=== PATIENT | male | born 1960 | race Caucasian/White ===

== ENCOUNTER 2017-07-04 11:24 | Day surgery (SDC) | payer BC ==
--- NOTE | 2017-07-03 10:48 | Pre-Procedure Note/Attestation ---
Pre-Procedure Note/Attestation Complete Prior to Procedure Planned Procedure: right Procedure Narrative: Rt knee arthroscopy, lateral meniscectomy Indications for Procedure Pre-Operative Diagnosis: Rt knee lateral meniscus tear Attestation I attest that I discussed the nature of the procedure; its benefits; risks and complications; and alternatives (and the risks and benefits of such alternatives ), prior to the procedure, with the patient (or the patient's legal outreach representative). I attest that, if there was a reasonable possibility of needing a blood transfusion, the patient (or the patient's legal outreach representative) was given the [facility] standardized written summary, pursuant to the Wilfred Marcin Blood Safety Act ([place] Health and Safety Code # 1645, as amended). I attest that I re-evaluated the patient just prior to the surgery and that there has been no change in the patient's H&P, except as documented below: NONE KINDRA GRACIA Jul 03, 2017 10:48
[~2017-07-04] VITALS: Ht 182.9 cm; Wt 111.1 kg
[2017-07-04] VITALS (8 sets, daily range): BP systolic 86–136; BP diastolic 48–89
[~2017-07-04 11:24] MED LIST: TESTOSTERONE INJ; VITAMIN B12 INJ; ceFAZolin 1 GM premix IV ONE; celeBREX 200mg Cap **SURGERY PATIENTS ONLY ORAL ONE; oxyCONTIN 20mg tab ORAL ONE
[2017-07-04] MEDS ORDERED: Propofol 10mg/ml 20ml IV ONE (12:31)
[2017-07-04] MEDS ORDERED: Bupivacaine w/Epi 0.5% 30ml Vial INJ ONE (12:31)
[2017-07-04] MEDS ORDERED: LR 1000ml 1,000 ML IVLG SCH (13:18)
--- NOTE | 2017-07-04 13:18 | Anethesia Preoperative Eval ---
Anesthesia Pre-op PMH/ROS General Date of Evaluation: Jul 04, 2017 Time of Evaluation: 13:12 Anesthesiologist: Amado ASA Score: ASA 2 Mallampati Score Class I : Soft palate, uvula, fauces, pillars visible Class II: Soft palate, uvula, fauces visible Class III: Soft palate, base of uvula visible Class IV: Only hard plate visible Mallampati Classification: Class II Surgeon: Raj Diagnosis: R knee pain Surgical Procedure: R knee scope Anesthesia History: none Family History: no anesthesia problems Allergies: Coded Allergies: No Known Allergies (Verified Allergy, Mild, 02/04/08) Past Medical History Cardiovascular: Reports: HTN, Denies: CAD, TN, arrhythmia, other, valve dz Pulmonary: Reports: KIEL, Denies: COPD, asthma, other Gastrointestinal/Genitourinary: Reports: CRI, GERD, Denies: ESRD, other Neurologic/Psychiatric: Denies: CVA, TIA, dementia, depression/anxiety, other Endocrine: Denies: DM, hypothyroidism, other, steroids HEENT: Denies: [place] (L), [place] (R), cataract (L), cataract (R), glaucoma, other Hematology/Immune: Denies: DVT, anemia, bleeding disorder, other Musculoskeletal/Integumentary: Denies: DDD, DJD, OA, RA, edema, other Other: other - overwweight PMH Narrative: as above PSxH Narrative: L knee and ankle Anesthesia Pre-op Phys. Exam Physician Exam Last Vital Signs Date Time Temp Pulse Resp B/P Pulse Ox O2 Delivery O2 Flow Rate FiO2 07/04/17 11:53 98.3 59 18 123/88 97 Room Air Constitutional: NAD Neurologic: CN 2-12 intact Cardiovascular: RRR, no M/R/G Respiratory: CTA Gastrointestinal: S/NT/ND Airway Exam Mallampati Score: Class II MO: full Neck: flexible ROM: full Teeth: intact Dentures: no lower, no upper Anesthesia Pre-op A/P Labs see chart Studies Pre-op Studies: EKG - NSR Risk Assessment & Plan Assessment: ASA 2 Plan: GA with LMA Status Change Before Surgery: No Pre-Antibiotics Drug: Ancef 2grCRISPIN BLANK M.D. Jul 04, 2017 13:18
[2017-07-04] MEDS ORDERED: Midazolam 2mg/2ml Inj IVP PRN (13:30)
[2017-07-04] MEDS ORDERED: LR 1000ml ONE (13:30)
[2017-07-04] MEDS ORDERED: Meperidine 25mg/0.5ml Inj (FOR RIGORS ONLY) IV PRN (13:30)
[2017-07-04] MEDS ORDERED: Hydromorphone 0.5mg/0.5ml inj IVP PRN (13:30)
[2017-07-04] MEDS ORDERED: NS Irrig 1000ml ONE (13:30)
[2017-07-04] MEDS ORDERED: DiphenhydrAMINE 50mg/ml Inj IVP PRN (13:30)
[2017-07-04] MEDS ORDERED: Midazolam 2mg/2ml Inj ONE (13:30)
[2017-07-04] MEDS ORDERED: fentaNYL 100 mcg/2 mL IV ONE (13:30)
[2017-07-04] MEDS ORDERED: Sterile Water Irrig 1000ml IRRIG ONE (13:30)
--- NOTE | 2017-07-04 14:51 | Brief Operative Note ---
Immediate Post Operative Note Operative Note Chief Complaint: rt knee pain Pre-op Diagnosis: rt knee lateral meniscus tear Procedure: rt knee scope, lateral meniscectomy Post-op Diagnosis: same as pre-op Findings: consistent w/pre-op dx studies Surgeon: md ricardo Analysis Engineer: surjit Naylor Anesthesiologist: md hung Anesthesia: general Specimen: none Complications: none Condition: stable Estimated Blood Loss: minimal Drains: none Implant(s) used?: No MYRANDA NAYLOR Jul 04, 2017 14:51
--- NOTE | 2017-07-04 15:52 | Immediate Post-Op Evaluation ---
Immediate Post-Op Evalulation Immediate Post-Op Evalulation Procedure: R knee arthroscopy meniscectomy Date of Evaluation: Jul 04, 2017 Time of Evaluation: 15:02 IV Fluids: 1000 Blood Products: none Estimated Blood Loss: min Urinary Output: none Blood Pressure Systolic: 92 Blood Pressure Diastolic: 48 Pulse Rate: 62 Respiratory Rate: 20 O2 Sat by Pulse Oximetry: 99 Temperature (Fahrenheit): 97.7 Pain Score (1-10): 2 Nausea: No Vomiting: No Complications none Patient Status: reacts, patent, none Hydration Status: adequate CRISPIN CABALLERO M.D. Jul 04, 2017 15:52
--- NOTE | 2017-07-04 15:54 | 48 Hour Post Anesthesia Eval ---
Post Anesthesia Evaluation Procedure: R knee arthroscopy meniscectomy Date of Evaluation: Jul 04, 2017 Time of Evaluation: 15:53 Blood Pressure Systolic: 108 0: 72 Pulse Rate: 64 Respiratory Rate: 22 Temperature (Fahrenheit): 97.6 O2 Sat by Pulse Oximetry: 98 Airway: patent Nausea: No Vomiting: No Pain Intensity: 2 Hydration Status: adequate Cardiopulmonary Status: stable Mental Status/LOC: patient returned to baseline Follow-up Care/Observations: n/a Post-Anesthesia Complications: none Follow-up care needed: ready to discharge CRISPIN CABALLERO M.D. Jul 04, 2017 15:54
[2017-07-04] MEDS ORDERED: Norco 5mg/325mg tab ORAL PRN (19:31)
[2017-07-04] MEDS ORDERED: Tylenol #3 tab (300mg/30mg) ORAL PRN (19:31)
[2017-07-04] MEDS ORDERED: D5 1/2NS 1,000 ML IV SCH (19:31)
[2017-07-04] MEDS ORDERED: HYDROmorphone 1mg/ml Carpuject SUBQ PRN (19:31)
--- NOTE | 2017-07-05 07:00 | Operative Note - Dictated ---
DATE OF OPERATION: 07/04/2017 PREOPERATIVE DIAGNOSIS: Right knee anterior horn lateral meniscus tearing. POSTOPERATIVE DIAGNOSES: 1. Right knee anterior horn and body lateral meniscus tearing involving 30% anterior horn and body lateral meniscus. 2. Right knee posterolateral tibial plateau chondral lesion, full thickness, measuring 6 mm x 7 mm. PROCEDURES: 1. Right knee arthroscopy and extensive intra-articular shaving. 2. Right knee resection of loose chondral fragments from the posterolateral corner of the knee on the tibial plateau. 3. Right knee partial lateral meniscectomy involving anterior horn and body of lateral meniscus involving 30% of lateral meniscus. 4. Abrasion chondroplasty of the posterolateral tibial plateau chondral lesions. SURGEON: Marty Anthony M.D. INFORMATION SECURITY ARCHITECT: Madeline Naylor PA-C. Surgical Sales Representative was present during the actual operative portion of the case and was important and essential part of the operation. During the operation, the geological survey field assistant held and operated the arthroscopic camera for visualization, assisted by manipulating the leg to help with visualization, and helped with essential parts of the repair process as necessary such as operating surgical instruments under surgeon supervision, suture management, and wound closures. ANESTHESIOLOGIST: Feroz Fischer M.D. ANESTHESIA: General LMA anesthesia. TOURNIQUET TIME: 25 minutes. EBL: Minimal COMPLICATIONS: None SURGICAL INDICATION: Patient is a 56-year old male who sustained the above injury to his knee. The patient was treated non-operative initially, but this did not alleviate the patient's symptoms. Therefore, after discussing all non-surgical and surgical options, and discussing all foreseeable risk and benefits of surgery, the patient opted for surgical treatment as described above. PATIENT POSITIONING: Patient was brought to the operating room table and placed supine. All pressure points were well padded. General Anesthesia was induced and a well padded tourniquet was placed on the thigh. The lateral post was placed and positioned to allow for opening of the medial compartment of the knee without placing pressure over the fibular head. Patients entire leg was prepped and draped in the usual sterile fashion. Time out was performed and preop abx was given and after exsanguinating the lower extremity, the tourniquet was inflated to 275 mm of mercury. EXAMINATION OF THE KNEE UNDER ANESTHESIA: Before prepping and draping the knee and while the patient was relaxed under general anesthesia, the knee was examined for ROM, and anterior and posterior, medial and lateral, posterolateral, and posteromedial instability. Pivot shift testing was performed. There was no evidence of loss of motion or instability and the pivot shift testing was negative. PORTAL PLACEMENT: The lateral portal was placed with the knee flexed to 90 degrees at the level of inferior border of the patella in line with the lateral border of the patella. A cm skin incision was made with an eleven blade, and using a blunt obturator, the capsule was gently penetrated. Sterile saline solution was then infused inside the knee with the aid of a pump set at 35 mm mercury pressure. Under direct visualization, placement of the medial portal was preliminary judged using a spinal needle, and it was subsequently established using the same technique as the lateral portal. Care was given not to injure the cutaneous branches of the medial Saphenous nerve or the subcutaneous veins. DIAGNOSTIC ARTHROSCOPY: The suprapatellar patellar pouch was visualized. There was no evidence of scar tissue or loose fragments. The medial and lateral patellar facets and trochlear groove articular cartilage was visualized. These structures were intact and were devoid of any articular cartilage damage. The medial plica shelf and the corresponding medial femoral condyle articular cartilage were visualized. There was no significantly thickening of the medial plica shelf and there were no kissing? lesion over the medial femoral condyle. The lateral gutter and the posterolateral corner of the knee were visualized. There were no loose bodies, and the popliteus tendon and other structures of the posterolateral corner of the knee were intact intra-articularly. At this point, the knee was placed in the figure of four position and the lateral compartment was entered. The lateral femoral condyle, lateral tibial plateau, and the anterior, body, and the posterior horn of the lateral meniscus were visualized and probed. There was a chondral damage over the posterolateral corner of the knee over the tibial plateau. 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 This measured 4 x 4 mm initially and once it was debrided, it measured 7 x 7 mm. There was a tear of the anterior horn and body of the lateral meniscus with a large meniscal flap. This was approximately 30% of lateral meniscus. The knee was then placed at 90 degree and the ACL and PCL were visualized and probed. The ACL was completely intact on visualization and probing, and it had excellent tension. The PCL was completely intact on visualization and probing and it had excellent tension. The medial compartment was then entered and the medial femoral condyle, medial tibial plateau, and the anterior, body, and the posterior horn of the medial meniscus were visualized and probed. The articular surfaces were intact and devoid of articular cartilage damage. The medial meniscus was completely intact both on its undersurface and on the top. The medial gutter was visualized. There was no evidence of defect or loose fragments. The scope was then brought back to the patella femoral compartment. OPERATIVE ARTHROSCOPY: At this point, all loose debris and fragments were removed with the use of suction motorized shaver. Specific attention was given to assure all visible loose fragments were irrigated out of the knee joint with pump inflow and cannula outflow system. The loose fragments were identified and visualized. Using combination of the shaver, suction, and graspers, these loose fragments were removed. These loose fragments measuring 5 mm of loose chondral debris. All debris left behind was removed with combination of mallory and graspers. At this point, attention was given to the lateral meniscus. Using combination of baskets and mallory, the torn portion of the lateral meniscus was removed. Attention was given to remove all displaced and unstable portion of the lateral meniscus while maintaining as much of the functional portion of the meniscus as possible. Approximately, 30% of the posterior horn and body of the meniscus was removed in this fashion. The transition between the meniscectomy portion and intact portion of the meniscus was smoothed out with combination of small baskets and mallory. Excellent transition zone was obtained in this fashion. Care was given to the area of cartilage damage in the lateral compartment. The frayed and loose fragments of articular cartilage were debrided using a motorized shaver. Suction was used to pull in the loose fragments and flaps of the cartilage and to minimize damage to the intact and well attached portion of the cartilage. This allowed for smooth surfaces for the articular cartilage. At this point, once the chondral surfaces were debrided, abrasion chondroplasty of the posterolateral tibial plateau was performed using a shaver to create bleeding surfaces. CONDITION AT DISCHARGE FROM OPERATING ROOM: The knee was irrigated with copious amount of normal saline at the end of the procedure. The scope was removed and the water was drained. The skin edges were re-approximated and sterile dressing was applied. All lap count and instrument counts were correct. Patient tolerated the procedure well without complications and was taken to the recovery room in stable conditions. Marty Anthony M.D. DR: PARVEZ JOB#: [id number] CC:
== END 2017-07-04 16:20 | disposition home or self-care (01) ==
LOC: SUR 11:24
DX: S83.281A Other tear of lateral meniscus, current injury, right knee, initial encounter (principal); X58.XXXA Exposure to other specified factors, initial encounter; Y92.89 Other specified places as the place of occurrence of the external cause; Y99.9 Unspecified external cause status; I12.9 Hypertensive chronic kidney disease with stage 1 through stage 4 chronic kidney disease, or unspecified chronic kidney disease; N18.2 Chronic kidney disease, stage 2 (mild); G47.33 Obstructive sleep apnea (adult) (pediatric); E66.9 Obesity, unspecified; Z68.33 Body mass index [BMI] 33.0-33.9, adult; E29.1 Testicular hypofunction; K21.9 Gastro-esophageal reflux disease without esophagitis
CPT/HCPCS: 29879; 29881; J0690; J2250; J2704; J3010; J7120; 94003; 94150